=== PATIENT | female | born 1970 | race Caucasian/White ===

== ENCOUNTER 2018-03-05 12:13 | Day surgery (SDC) | payer OTHER ==
[~2018-03-05] VITALS: Ht 167.6 cm; Wt 72.6 kg
[~2018-03-05 12:13] MED LIST: COZAAR25 MG PO; DAILY MULTIPLE1 EAC2 PO
[2018-03-05 12:49] LABS: HEMATOCRIT 40.5 % (36.0-46.0); HEMOGLOBIN 13.7 G/DL (11.9-15.5); MCH 30.3 PG (29.0-34.0); MCHC 33.8 G/DL (30.0-36.0); MCV 89.6 FL (83-99); PLATELET COUNT 313 K/uL (156-360); RBC DIS.WIDTH-CV 13.2 % (11.8-14.6); RBC DIS.WIDTH-SD 43.3 % (39-53); RED BLOOD COUNT 4.52 M/uL (3.80-5.20); WHITE BLOOD COUNT 7.2 K/uL (4.1-10.2)
[2018-03-05 13:06] LABS: ALBUMIN 4.5 g/dL (3.2-4.8); CHLORIDE 107 mEq/L (99-109); POTASSIUM 3.9 mEq/L (3.7-5.4); SODIUM 142 mEq/L (136-147)
[2018-03-05 13:09] LABS: GLUCOSE 97 mg/dL (70-99); TOTAL PROTEIN 7.6 g/dL (6.4-8.3)
[2018-03-05 13:11] LABS: TOTAL BILIRUBIN 0.5 mg/dL (0.0-1.0)
[2018-03-05 13:12] LABS: ALKALINE PHOSPHATASE 111 IU/L (3-129); CREATININE 0.8 mg/dL (0.6-1.3); GFR ESTIMATE (CALCULATED) > 59 mL/min/
[2018-03-05 13:13] LABS: UREA NITROGEN (BUN) 13 mg/dL (9-23)
[2018-03-05 13:14] LABS: AST (GOT) 17 IU/L (2-34)
[2018-03-05 13:15] LABS: ALT (GPT) 20 IU/L (3-49)
[2018-03-05 13:35] VITALS: BP 162/86
[2018-03-05 16:07] VITALS: BP 134/81
[2018-03-05 17:00] VITALS: BP 129/74
== END 2018-03-05 17:00 | disposition home or self-care (01) ==
LOC: SDC 12:13
PROVIDERS: Ophthalmology
DX: H35.371 Puckering of macula, right eye (principal); H35.341 Macular cyst, hole, or pseudohole, right eye; H43.391 Other vitreous opacities, right eye; H43.821 Vitreomacular adhesion, right eye; I10 Essential (primary) hypertension; Z88.0 Allergy status to penicillin; Z91.041 Radiographic dye allergy status
CPT/HCPCS: 80053; 85027; 93005; J0690; J1100; J2250; J2405; J2795; J3010; J3300